=== PATIENT | female | born 1940 | race Caucasian/White ===

== ENCOUNTER 2018-01-08 10:02 | Day surgery (SDC) | payer OTHER ==
[~2018-01-08 10:02] MED LIST: ACETAMINOPHEN 325 MG TAB PO; MIDAZOLAM INJ 2 MG/2 ML VIAL (J2250) As Ordered; PHENYLEPHRINE HCL 10 % OPHTH. SOL 5ML OD
[2018-01-08] MEDS: PHENYLEPHRINE 2.5% OPHTH SOL 2ML OD (12:50)
[2018-01-08] MEDS: OFLOXACIN 0.3 % (OCUFLOX) OPTH SOL 5ML OD (12:51)
[2018-01-08] MEDS: TROPICAMIDE 1% OPHTH SOLN 2ML OD (12:51)
[2018-01-08] MEDS: CYCLOPENTOLATE 2% OPHTH SOLN 2ML BTL OD (12:51)
[2018-01-08] MEDS: LIDOCAINE 3.5 % 1ML OPHTH TOPICAL GEL OU (12:51)
[2018-01-08] MEDS: HEALON DUET (HEALON 10MG/ML 0.55ML & HEALON ENDOCOAT 30MG/ML 0.85ML) As Ordered (13:57)
[2018-01-08] MEDS: BSS with VANC/TOB/EPI for EYE CASES IR (13:57)
[2018-01-08] MEDS: POVIDONE-IODINE 5% OPHTH PREP SOL 30ML As Ordered (13:57)
[2018-01-08] MEDS: MOXIFLOXACIN IN BSS 0.25MG/0.25ML INTRACAMERAL INJ (OR EYE ONLY)(J2280) As Ordered (13:57)
[2018-01-08] MEDS: TRIAMCINOLONE PRES FR 40 MG/ML 1ML(TRIESENCE)(OR EYE ONLY)(J3300 PER 1MG) As Ordered (13:57)
[2018-01-08] MEDS: LIDOCAINE 1% SDV 5 ML VIAL As Ordered (13:57)
[2018-01-08] MEDS: AcetaZOLAMIDE 500 MG ER CAP PO (14:26)
[2018-01-08] MEDS ORDERED: TRIMETHOBENZAMIDE 300 MG CAP PO (14:30)
[2018-01-08] MEDS ORDERED: ONDANSETRON 4MG/2ML VIAL (J2405) IV (14:30)
[2018-01-08] MEDS ORDERED: LR 1,000 ML IV (14:30)
== END 2018-01-08 14:42 | disposition home or self-care (01) ==
LOC: M SDC 10:02
DX: H26.9 Unspecified cataract (principal); I25.10 Atherosclerotic heart disease of native coronary artery without angina pectoris; I10 Essential (primary) hypertension; E78.5 Hyperlipidemia, unspecified; K21.9 Gastro-esophageal reflux disease without esophagitis
CPT/HCPCS: 66984

== ENCOUNTER 2018-01-15 10:38 | Day surgery (SDC) | payer OTHER ==
[2018-01-15] MEDS: HEALON DUET (HEALON 10MG/ML 0.55ML & HEALON ENDOCOAT 30MG/ML 0.85ML) As Ordered (07:06)
[~2018-01-15 10:38] MED LIST changes: -ACETAMINOPHEN 325 MG TAB PO; -MIDAZOLAM INJ 2 MG/2 ML VIAL (J2250) As Ordered; -PHENYLEPHRINE HCL 10 % OPHTH. SOL 5ML OD; +PHENYLEPHRINE HCL 10 % OPHTH. SOL 5ML OS
[2018-01-15] MEDS: CYCLOPENTOLATE 2% OPHTH SOLN 2ML BTL OS (11:51)
[2018-01-15] MEDS: LIDOCAINE 3.5 % 1ML OPHTH TOPICAL GEL OU (11:52)
[2018-01-15] MEDS: TROPICAMIDE 1% OPHTH SOLN 2ML OS (11:52)
[2018-01-15] MEDS: OFLOXACIN 0.3 % (OCUFLOX) OPTH SOL 5ML OS (11:52)
[2018-01-15] MEDS: PHENYLEPHRINE 2.5% OPHTH SOL 2ML OS (11:52)
[2018-01-15] MEDS: TRIAMCINOLONE PRES FR 40 MG/ML 1ML(TRIESENCE)(OR EYE ONLY)(J3300 PER 1MG) As Ordered (13:21)
[2018-01-15] MEDS ORDERED: fentaNYL 100 MCG/2 ML INJECTION (J3010) As Ordered (13:21)
[2018-01-15] MEDS: LIDOCAINE 1% SDV 5 ML VIAL As Ordered (13:21)
[2018-01-15] MEDS: BSS with VANC/TOB/EPI for EYE CASES IR (13:21)
[2018-01-15] MEDS: POVIDONE-IODINE 5% OPHTH PREP SOL 30ML As Ordered (13:21)
[2018-01-15] MEDS: MOXIFLOXACIN IN BSS 0.25MG/0.25ML INTRACAMERAL INJ (OR EYE ONLY)(J2280) As Ordered (13:21)
[2018-01-15] MEDS ORDERED: MIDAZOLAM INJ 2 MG/2 ML VIAL (J2250) As Ordered (13:22)
[2018-01-15] MEDS: AcetaZOLAMIDE 500 MG ER CAP PO (14:00)
[2018-01-15] MEDS ORDERED: TRIMETHOBENZAMIDE 300 MG CAP PO (14:00)
[2018-01-15] MEDS: ACETAMINOPHEN 325 MG TAB PO (14:15)
== END 2018-01-15 14:35 | disposition home or self-care (01) ==
LOC: M SDC 10:38
DX: H26.9 Unspecified cataract (principal); I25.10 Atherosclerotic heart disease of native coronary artery without angina pectoris; I10 Essential (primary) hypertension; G47.30 Sleep apnea, unspecified; Z98.61 Coronary angioplasty status; Z79.82 Long term (current) use of aspirin; K21.9 Gastro-esophageal reflux disease without esophagitis; E78.5 Hyperlipidemia, unspecified; F41.9 Anxiety disorder, unspecified; Z79.899 Other long term (current) drug therapy
CPT/HCPCS: 66984

== ENCOUNTER → 2018-09-27 | Outpatient (CLI) | payer MEDICARE ==
[~2018-09-27] MED LIST changes: +ASPI-255 PO; +CLOP75TA2; +ESOM1CAP5; +HYDR25TAB; +IBUP80TA; +ISOS60TA2; +LOSA50TA88; +METO1TAB32; +NITR0.4S14; -PHENYLEPHRINE HCL 10 % OPHTH. SOL 5ML OS; +SERT-155
--- NOTE | 2018-09-30 00:24 | REPVR ---
EXAM: MR Head Without Contrast EXAM DATE/TIME: 09/27/2018 10:50 AM CLINICAL HISTORY: 77 years old, female; Other: Spasms; Additional info: Oth abn involuntary movements TECHNIQUE: Imaging protocol: MR of the head without contrast. COMPARISON: No relevant prior studies available. FINDINGS: Brain: There is no definitive restricted diffusion within the brain to suggest an acute infarct. Artifact limits evaluation of the frontal cortices on diffusion. There are scattered foci of FLAIR hyperintensity within the cerebral white matter. There is no mass effect or restricted diffusion associated with these foci. In a patient this age, this likely represents chronic small vessel ischemic disease. No intracranial mass effect. No magnetic susceptibility intracerebral hemosiderin is visualized. Ventricles: There is mild prominence of the ventricles and sulci, compatible with atrophy. Bones/joints: There is diffuse nonspecific heterogeneous signal intensity of the skull. Hyperostosis frontalis interna. Soft tissues: Unremarkable, as visualized. Sinuses: Normal as visualized. No acute sinusitis. Mastoid air cells: No mastoid effusion. Orbits: Bilateral orbital lens implants. IMPRESSION: 1. There is no definitive restricted diffusion within the brain to suggest an acute infarct. 2. There are scattered foci of FLAIR hyperintensity within the cerebral white matter. In a patient this age, this likely represents chronic small vessel ischemic disease. 3. Mild atrophy. 4. Additional findings described above. Electronically signed by: Orion Guajardo On 09/30/2018 00:24:36 AM
== END ==
LOC: M RAD 08:36
PROVIDERS: ATTEND Psychiatry & Neurology Neurology
DX: G31.89 Other specified degenerative diseases of nervous system (principal); R25.8 Other abnormal involuntary movements; R20.2 Paresthesia of skin

== ENCOUNTER → 2023-07-01 | Outpatient (CLI) | payer MEDICARE ==
[~2023-07-01] MED LIST changes: +HYDR-3490; -HYDR25TAB; +ISOS1TAB36; -ISOS60TA2; +LOSA50TA28; -LOSA50TA88; -SERT-155; +SERT50TA29
== END ==
LOC: M PLAIMG 09:36
PROVIDERS: ATTEND Internal Medicine Cardiovascular Disease
DX: I35.0 Nonrheumatic aortic (valve) stenosis (principal)

== ENCOUNTER 2023-07-04 11:13 | Day surgery (SDC) | payer MEDICARE ==
[~2023-07-04] VITALS: Ht 165.1 cm; Wt 103.2 kg
[~2023-07-04 11:13] MED LIST changes: +AMIODARONE 150MG/3ML VIAL As Ordered ONE; +ASPI81TA26 PO; +ATOR40TA75 PO; +BRIN15DR OU; +BUPR150T12 PO; +ELIQ5TAB PO; +ISOVUE-300 61% 100ML VIAL As Ordered ONE; +MELA10TA2 PO; +NEXI40CA PO; +PRESCAP PO; +RA M500C PO; +VALS1TAB67 PO
[2023-07-04] MEDS ORDERED: AMLO25TA PO (14:10)
[2023-07-04] MEDS ORDERED: MELA5TAB36 PO (14:10)
[2023-07-04] MEDS ORDERED: HOME MED LIST COMPLETE! XX SCH (14:10)
[2023-07-04] MEDS ORDERED: XALA0.007 OU (14:10)
[2023-07-04] MEDS: ceFAZolin SOD 2 GM in IV 1 EA IV ONE (14:31)
[2023-07-04] MEDS ORDERED: MIDAZOLAM INJ 2MG/2ML VIAL As Ordered ONE (14:46)
[2023-07-04] MEDS ORDERED: propofoL 200 MG/20 ML VIAL As Ordered ONE (14:46)
[2023-07-04] MEDS ORDERED: fentaNYL 100 MCG/2 ML INJECTION As Ordered ONE (14:46)
[2023-07-04] MEDS ORDERED: ACETAMINOPHEN 1000MG 100ML IV BAG As Ordered ONE (15:24)
[2023-07-04] MEDS ORDERED: ONDANSETRON 4MG 2ML VIAL As Ordered ONE (15:27)
[2023-07-04] MEDS: LIDOCAINE 1% SDV 30ML VIAL As Ordered ONE (15:34)
[2023-07-04 17:25] VITALS: BP 161/69; TEMP 97.5; O2SAT 99
== END 2023-07-04 17:37 | disposition home or self-care (01) ==
LOC: M SDC 11:13
PROVIDERS: ATTEND Internal Medicine Cardiovascular Disease
DX: I44.2 Atrioventricular block, complete (principal); I48.91 Unspecified atrial fibrillation; I49.3 Ventricular premature depolarization; I35.0 Nonrheumatic aortic (valve) stenosis; I25.2 Old myocardial infarction; I25.10 Atherosclerotic heart disease of native coronary artery without angina pectoris; E11.9 Type 2 diabetes mellitus without complications; I10 Essential (primary) hypertension; G47.33 Obstructive sleep apnea (adult) (pediatric); E66.01 Morbid (severe) obesity due to excess calories; E78.5 Hyperlipidemia, unspecified; Z95.5 Presence of coronary angioplasty implant and graft; Z79.899 Other long term (current) drug therapy; Z86.73 Personal history of transient ischemic attack (TIA), and cerebral infarction without residual deficits; Z90.710 Acquired absence of both cervix and uterus
CPT/HCPCS: 33208; 71045; 76000; 93005; C1785; C1898; J0131; J0282; J0690; J2250; J2405; J3010